=== PATIENT | male | born 1930 | race Caucasian/White ===

== ENCOUNTER 2018-05-09 00:53 | Inpatient (IN) | payer MEDICARE, OTHER ==
[~2018-05-09] VITALS: Ht 175.3 cm; Wt 73.9 kg
[2018-05-09 01:12] LABS: BASOPHILS % (AUTO) 0.6 % (0.0-2.0); EOSINOPHILS # (AUTO) 0.3 K/uL (0.0-0.7); EOSINOPHILS % (AUTO) 4.5 % (0.0-7.0); HEMATOCRIT 33.5 % (36.7-47.1); HEMOGLOBIN 11.1 g/dL (12.5-16.3); LYMPHOCYTES # (AUTO) 1.4 K/uL (20.0-40.0); LYMPHOCYTES % (AUTO) 19.4 % (20.5-51.5); MEAN CORPUSCULAR HEMOGLOBIN 31.6 uug (23.8-33.4); MEAN CORPUSCULAR HGB CONC 33 g/dL (32.5-36.3); MEAN CORPUSCULAR VOLUME 95.2 fL (73.0-96.2); MONOCYTES # (AUTO) 0.6 K/uL (2.0-10.0); NEUTROPHILS # (AUTO) 4.9 K/uL (1.8-8.9); NEUTROPHILS % (AUTO) 67.5 % (38.5-71.5); PLATELET COUNT (AUTO) 194 K/uL (152-348); RED BLOOD CELL COUNT(AUTO) 3.52 MIL/uL (4.06-5.63); WHITE BLOOD COUNT (AUTO) 7.3 K/uL (3.6-10.2)
[2018-05-09 01:17] LABS: CARBON DIOXIDE 23 mmol/L (21-32); CHLORIDE 109 mmol/L (98-107); CREATININE 2.1 mg/dL (0.6-1.3); GLUCOSE 144 mg/dL (74-106); POTASSIUM 4.1 mmol/L (3.5-5.1); UREA NITROGEN, BLOOD 42 mg/dL (7-18)
[2018-05-09 01:23] LABS: ALANINE AMINOTRANSFERASE 16 U/L (16-63); ALKALINE PHOSPHATASE 53 U/L (50-136); ASPARTATE AMINOTRANSFERASE 13 U/L (15-37); BILIRUBIN,DIRECT 0.1 mg/dL (0.0-0.2); BILIRUBIN,TOTAL 0.4 mg/dL (0.2-1.0); TOTAL PROTEIN, SERUM 6.8 g/dL (6.4-8.2)
[2018-05-09] MEDS ORDERED: PANT20TA2 PO (01:24)
[2018-05-09] MEDS ORDERED: SPIR25TA PO (01:24)
[2018-05-09] MEDS ORDERED: POTA20TA10 PO (01:24)
[2018-05-09] MEDS ORDERED: HYDR-4384 PO (01:24)
[2018-05-09] MEDS ORDERED: HYDR-4075 PO (01:24)
[2018-05-09] MEDS ORDERED: VIT1CAPS9 PO (01:24)
[2018-05-09] MEDS ORDERED: ASPI81TA31 PO (01:24)
[2018-05-09] MEDS ORDERED: DONE10TA11 PO (01:24)
[2018-05-09] MEDS ORDERED: MAGN400O6 PO (01:24)
[2018-05-09] MEDS ORDERED: ATOR20TA27 PO (01:24)
[2018-05-09] MEDS ORDERED: CARV6.25 PO (01:24)
[2018-05-09] MEDS ORDERED: CRAN450C PO (01:24)
[2018-05-09] MEDS ORDERED: NA P230E RC (01:24)
[2018-05-09] MEDS ORDERED: MEMA5TAB PO (01:24)
[2018-05-09] MEDS ORDERED: MAG-55 PO (01:24)
[2018-05-09] MEDS ORDERED: ACET325C5 PO (01:26)
[2018-05-09] MEDS ORDERED: ASCO500C18 PO (01:26)
[2018-05-09] MEDS ORDERED: QUET25TA PO (01:26)
[2018-05-09 01:36] LABS: ACETAMINOPHEN < 2.0 ug/mL (10-30)
[2018-05-09 01:40] LABS: ETHANOL < 3 MG/DL (0-0)
[2018-05-09 01:41] LABS: *AMPHETAMINE, URINE NEGATIVE (NEGATIVE); *BARBITURATE, URINE NEGATIVE (NEGATIVE); *BILIRUBIN,URIN NEGATIVE (NEGATIVE); *BLOOD, URINE 2+ (NEGATIVE); *CANNABINOID, URINE NEGATIVE (NEGATIVE); *CLARITY,URINE CLOUDY (CLEAR); *COCCAINE, URINE NEGATIVE (NEGATIVE); *COLOR,URINE LIGHT YELLOW (YELLOW); *KETONES,URINE NEGATIVE (NEGATIVE); *OPIATE, URINE NEGATIVE (NEGATIVE); *PHENCYCLIDINE SCREEN,URINE NEGATIVE (NEGATIVE); *UROBILINOGEN,URINE 0.2 E.U./dl (NORMAL); LEUKOCYTE ESTERASE ,URINE 3+ (NEGATIVE); NITRITE, URINE NEGATIVE (NEGATIVE); PH,URINE 5.5 (5.0-8.0); UGLUCOSE NEGATIVE (NEGATIVE)
[2018-05-09 01:44] LABS: BACTERIA,URINE MANY /HPF (NONE SEEN); SQUAMOUS EPITHELIAL CELL,UR FEW /HPF (NONE SEEN); WBC,URINE TNTC /HPF (0-3)
[2018-05-09] MEDS ORDERED: LEVOFLOXACIN 750 MG TABLET ONE (01:59)
[2018-05-09] MEDS ORDERED: LEVOFLOXACIN 750 MG TABLET PO ONE (02:00)
[2018-05-09] MEDS ORDERED: MAG HYDROX/AL HYDROX/SIMETH 30 ML LIQUID UDC PO PRN ×2 (02:15→07:15)
[2018-05-09] MEDS ORDERED: LORAZEPAM 0.5 MG TABLET PO PRN ×2 (02:15→08:15)
[2018-05-09] MEDS ORDERED: MAGNESIUM HYDROXIDE 30 ML LIQUID UDC PO PRN (02:15)
[2018-05-09] MEDS ORDERED: ACETAMINOPHEN 325 MG TABLET PO PRN (02:15)
[2018-05-09] MEDS ORDERED: TEMAZEPAM 7.5 MG CAPSULE PO PRN (02:15)
[2018-05-09 03:25] VITALS: BP 156/83
[2018-05-09 04:12] VITALS: BP 156/83
[2018-05-09] MEDS ORDERED: [UNRECOGNIZED DRUG - OTHER] PO SCH (06:45)
[2018-05-09] MEDS ORDERED: MAGNESIUM HYDROXIDE 30 ML LIQUID UDC PO SCH (06:45)
[2018-05-09] MEDS ORDERED: MAG HYDROX PO SCH (06:45)
[2018-05-09] MEDS ORDERED: SIMETH PO SCH (06:45)
[2018-05-09] MEDS ORDERED: AL HYDROX PO SCH (06:45)
[2018-05-09] MEDS ORDERED: Medication Not On Formulary EA (Acetaminophen (Tylenol) 650 MG) PO SCH (06:45)
[2018-05-09 07:30] VITALS: BP 124/85
[2018-05-09] MEDS: PANTOPRAZOLE SODIUM 40 MG TABLET.DR PO SCH (07:48)
[2018-05-09] MEDS: ASPIRIN 81 MG TAB.CHEW PO SCH (08:05)
[2018-05-09] MEDS: POTASSIUM CHLORIDE 20 MEQ TAB.PRT.SR PO SCH (08:05)
[2018-05-09] MEDS: ASCORBIC ACID 500 MG TABLET PO SCH (08:05)
[2018-05-09] MEDS: SPIRONOLACTONE 25 MG TABLET PO SCH ×2 (08:06→20:07)
[2018-05-09] MEDS: CARVEDILOL 6.25 MG TABLET PO SCH ×2 (08:59→21:35)
[2018-05-09] MEDS: DONEPEZIL 10 MG TABLET PO SCH (09:00)
[2018-05-09] MEDS ORDERED: MEMANTINE HCL 5 MG TABLET PO SCH (09:00)
[2018-05-09] MEDS ORDERED: Medication Not On Formulary EA (Cranberry Fruit Concentrate (Cranberry) 900 MG) PO SCH (09:00)
[2018-05-09] MEDS ORDERED: Medication Not On Formulary EA (Vit A/Vit C/Vit E/Zinc/Copper (Preservision Areds Softge PO SCH (09:00)
[2018-05-09] MEDS: DIVALPROEX SPRINKLE 125 MG CAP.SPRINK PO SCH ×2 (09:00→20:07)
[2018-05-09] MEDS ORDERED: Medication Not On Formulary EA (Ascorbic Acid (Vitamin C) 500 MG) PO SCH (09:00)
[2018-05-09] MEDS: MEMANTINE HCL 5 MG TABLET PO SCH ×2 (09:01→20:07)
[2018-05-09] MEDS: BETA CAROTENE/VIT C & E/MIN TABLET PO SCH (09:02)
[2018-05-09] MEDS: hydrALAZINE HCL 10 MG TABLET PO SCH ×2 (14:21→23:05)
[2018-05-09 16:29] VITALS: BP 129/85
[2018-05-09] MEDS: ATORVASTATIN 20 MG TABLET PO SCH (20:06)
[2018-05-09] MEDS: CEphaleXIN 500 MG CAPSULE PO SCH (20:07)
[2018-05-09] MEDS: QUETIAPINE FUMARATE 25 MG TABLET PO SCH (20:07)
[2018-05-09 20:56] VITALS: BP 122/71
[2018-05-09] MEDS ORDERED: DONEPEZIL 10 MG TABLET PO SCH (21:00)
[2018-05-10] MEDS: hydrALAZINE HCL 10 MG TABLET PO SCH ×3 (06:00→22:04)
[2018-05-10] MEDS: PANTOPRAZOLE SODIUM 40 MG TABLET.DR PO SCH (06:46)
[2018-05-10] MEDS: DIVALPROEX SPRINKLE 125 MG CAP.SPRINK PO SCH ×2 (08:31→20:15)
[2018-05-10] MEDS: DONEPEZIL 10 MG TABLET PO SCH (08:31)
[2018-05-10] MEDS: MEMANTINE HCL 5 MG TABLET PO SCH ×2 (08:32→20:15)
[2018-05-10] MEDS: ASCORBIC ACID 500 MG TABLET PO SCH (08:32)
[2018-05-10] MEDS: BETA CAROTENE/VIT C & E/MIN TABLET PO SCH (08:32)
[2018-05-10] MEDS: ASPIRIN 81 MG TAB.CHEW PO SCH (08:32)
[2018-05-10] MEDS: CEphaleXIN 500 MG CAPSULE PO SCH ×2 (08:32→20:15)
[2018-05-10] MEDS: SPIRONOLACTONE 25 MG TABLET PO SCH ×2 (08:32→20:15)
[2018-05-10] MEDS: CARVEDILOL 6.25 MG TABLET PO SCH ×2 (08:40→21:00)
[2018-05-10 08:41] LABS: BASOPHILS % (AUTO) 0.5 % (0.0-2.0); EOSINOPHILS # (AUTO) 0.2 K/uL (0.0-0.7); EOSINOPHILS % (AUTO) 3.6 % (0.0-7.0); HEMATOCRIT 33.1 % (36.7-47.1); LYMPHOCYTES # (AUTO) 1.4 K/uL (20.0-40.0); MEAN CORPUSCULAR HEMOGLOBIN 31.7 uug (23.8-33.4); MEAN CORPUSCULAR HGB CONC 33 g/dL (32.5-36.3); MEAN CORPUSCULAR VOLUME 95.7 fL (73.0-96.2); MONOCYTES # (AUTO) 0.6 K/uL (2.0-10.0); MONOCYTES % (AUTO) 8.9 % (0.0-11.0); NEUTROPHILS # (AUTO) 4.5 K/uL (1.8-8.9); PLATELET COUNT (AUTO) 186 K/uL (152-348); RED BLOOD CELL COUNT(AUTO) 3.46 MIL/uL (4.06-5.63); WHITE BLOOD COUNT (AUTO) 6.8 K/uL (3.6-10.2)
[2018-05-10] MEDS: POTASSIUM CHLORIDE 20 MEQ TAB.PRT.SR PO SCH (08:46)
[2018-05-10 08:48] LABS: ALANINE AMINOTRANSFERASE 12 U/L (16-63); ALKALINE PHOSPHATASE 48 U/L (50-136); ASPARTATE AMINOTRANSFERASE 13 U/L (15-37); BILIRUBIN,TOTAL 0.4 mg/dL (0.2-1.0); CARBON DIOXIDE 21 mmol/L (21-32); CHLORIDE 109 mmol/L (98-107); CREATINE KINASE, TOTAL 49 U/L (39-308); CREATININE 2.2 mg/dL (0.6-1.3); GLUCOSE 88 mg/dL (74-106); MAGNESIUM 1.8 mg/dL (1.8-2.4); PHOSPHOROUS 3.4 mg/dL (2.5-4.9); POTASSIUM 4.5 mmol/L (3.5-5.1); TOTAL PROTEIN, SERUM 6.6 g/dL (6.4-8.2); UREA NITROGEN, BLOOD 40 mg/dL (7-18)
[2018-05-10 10:00] VITALS: BP 134/79
[2018-05-10 16:00] VITALS: BP 108/70
[2018-05-10] MEDS: ATORVASTATIN 20 MG TABLET PO SCH (20:15)
[2018-05-10] MEDS: QUETIAPINE FUMARATE 25 MG TABLET PO SCH (20:15)
[2018-05-10 20:43] VITALS: BP 119/61
[2018-05-11 01:40] LABS: *BILIRUBIN,URIN NEGATIVE (NEGATIVE); *BLOOD, URINE 1+ (NEGATIVE); *CLARITY,URINE TURBID (CLEAR); *COLOR,URINE YELLOW (YELLOW); *KETONES,URINE NEGATIVE (NEGATIVE); *UROBILINOGEN,URINE 0.2 E.U./dl (NORMAL); LEUKOCYTE ESTERASE ,URINE 3+ (NEGATIVE); NITRITE, URINE NEGATIVE (NEGATIVE); PH,URINE 5.5 (5.0-8.0); UGLUCOSE NEGATIVE (NEGATIVE)
[2018-05-11 02:02] LABS: BACTERIA,URINE FEW /HPF (NONE SEEN); SQUAMOUS EPITHELIAL CELL,UR FEW /HPF (NONE SEEN); WBC,URINE TNTC /HPF (0-3)
[2018-05-11 02:08] LABS: *CREATININE,URINE 62.2 mg/dL (30-125); *URINE TOTAL PROTEIN RANDOM 27.1 mg/dL (<150/24HR)
[2018-05-11] MEDS: hydrALAZINE HCL 10 MG TABLET PO SCH ×3 (06:00→22:27)
[2018-05-11 07:30] VITALS: BP 118/81
[2018-05-11 07:38] LABS: CARBON DIOXIDE 21 mmol/L (21-32); CHLORIDE 108 mmol/L (98-107); GLUCOSE 94 mg/dL (74-106); POTASSIUM 4.7 mmol/L (3.5-5.1); UREA NITROGEN, BLOOD 43 mg/dL (7-18)
[2018-05-11] MEDS: MEMANTINE HCL 5 MG TABLET PO SCH ×2 (08:07→20:05)
[2018-05-11] MEDS: FAMOTIDINE 20 MG TABLET PO SCH (08:07)
[2018-05-11] MEDS: ASPIRIN 81 MG TAB.CHEW PO SCH (08:07)
[2018-05-11] MEDS: BETA CAROTENE/VIT C & E/MIN TABLET PO SCH (08:07)
[2018-05-11] MEDS: DIVALPROEX SPRINKLE 125 MG CAP.SPRINK PO SCH ×2 (08:07→20:05)
[2018-05-11] MEDS: ASCORBIC ACID 500 MG TABLET PO SCH (08:08)
[2018-05-11] MEDS: CEphaleXIN 500 MG CAPSULE PO SCH ×2 (08:08→20:05)
[2018-05-11] MEDS: CARVEDILOL 6.25 MG TABLET PO SCH ×2 (08:08→20:07)
[2018-05-11] MEDS: DONEPEZIL 10 MG TABLET PO SCH (08:08)
[2018-05-11] MEDS: SPIRONOLACTONE 25 MG TABLET PO SCH ×2 (08:14→20:07)
[2018-05-11] MEDS: POTASSIUM CHLORIDE 20 MEQ TAB.PRT.SR PO SCH (09:04)
[2018-05-11 16:00] VITALS: BP 114/68
[2018-05-11 20:00] VITALS: BP 128/63
[2018-05-11] MEDS: QUETIAPINE FUMARATE 25 MG TABLET PO SCH (20:05)
[2018-05-11] MEDS: ATORVASTATIN 20 MG TABLET PO SCH (20:05)
[2018-05-12] MEDS: hydrALAZINE HCL 10 MG TABLET PO SCH ×3 (05:53→22:08)
[2018-05-12 07:30] VITALS: BP 144/89
[2018-05-12] MEDS: MEMANTINE HCL 5 MG TABLET PO SCH ×2 (08:45→20:18)
[2018-05-12] MEDS: CEphaleXIN 500 MG CAPSULE PO SCH ×2 (08:45→20:19)
[2018-05-12] MEDS: FAMOTIDINE 20 MG TABLET PO SCH (08:45)
[2018-05-12] MEDS: BETA CAROTENE/VIT C & E/MIN TABLET PO SCH (08:45)
[2018-05-12] MEDS: ASPIRIN 81 MG TAB.CHEW PO SCH (08:45)
[2018-05-12] MEDS: ASCORBIC ACID 500 MG TABLET PO SCH (08:45)
[2018-05-12] MEDS: POTASSIUM CHLORIDE 20 MEQ TAB.PRT.SR PO SCH (08:45)
[2018-05-12] MEDS: DONEPEZIL 10 MG TABLET PO SCH (08:45)
[2018-05-12] MEDS: DIVALPROEX SPRINKLE 125 MG CAP.SPRINK PO SCH ×2 (08:45→20:17)
[2018-05-12] MEDS: SPIRONOLACTONE 25 MG TABLET PO SCH ×2 (08:45→20:17)
[2018-05-12] MEDS: CARVEDILOL 6.25 MG TABLET PO SCH ×2 (08:46→20:27)
[2018-05-12 15:27] VITALS: BP 139/79
[2018-05-12 20:05] VITALS: BP 160/76
[2018-05-12] MEDS: ATORVASTATIN 20 MG TABLET PO SCH (20:18)
[2018-05-12] MEDS: QUETIAPINE FUMARATE 25 MG TABLET PO SCH (20:18)
[2018-05-13 00:11] LABS: A/G RATIO 1.3 (0.7-1.7); ALBUMIN 3.4 g/dL (2.9-4.4); ALPHA-1-GLOBULIN 0.1 g/dL (0.0-0.4); ALPHA-2-GLOBULIN 0.7 g/dL (0.4-1.0); BETA GLOBULIN 0.8 g/dL (0.7-1.3); GLOBULIN, TOTAL 2.7 g/dL (2.2-3.9); M-SPIKE Not Observed g/dL (Not Observed)
[2018-05-13] MEDS: hydrALAZINE HCL 10 MG TABLET PO SCH ×3 (05:35→21:44)
[2018-05-13 07:30] VITALS: BP 157/58
[2018-05-13 07:36] LABS: BASOPHILS % (AUTO) 0.3 % (0.0-2.0); EOSINOPHILS # (AUTO) 0.2 K/uL (0.0-0.7); EOSINOPHILS % (AUTO) 2.7 % (0.0-7.0); HEMATOCRIT 34.3 % (36.7-47.1); HEMOGLOBIN 11.6 g/dL (12.5-16.3); LYMPHOCYTES # (AUTO) 1.2 K/uL (20.0-40.0); LYMPHOCYTES % (AUTO) 12.9 % (20.5-51.5); MEAN CORPUSCULAR HEMOGLOBIN 32.2 uug (23.8-33.4); MEAN CORPUSCULAR HGB CONC 34 g/dL (32.5-36.3); MEAN CORPUSCULAR VOLUME 95.6 fL (73.0-96.2); MONOCYTES # (AUTO) 0.8 K/uL (2.0-10.0); MONOCYTES % (AUTO) 8.4 % (0.0-11.0); NEUTROPHILS % (AUTO) 75.7 % (38.5-71.5); PLATELET COUNT (AUTO) 181 K/uL (152-348); RED BLOOD CELL COUNT(AUTO) 3.59 MIL/uL (4.06-5.63); WHITE BLOOD COUNT (AUTO) 9.2 K/uL (3.6-10.2)
[2018-05-13 07:48] LABS: CARBON DIOXIDE 22 mmol/L (21-32); CHLORIDE 108 mmol/L (98-107); CREATININE 1.9 mg/dL (0.6-1.3); GLUCOSE 86 mg/dL (74-106); PHOSPHOROUS 4.1 mg/dL (2.5-4.9); POTASSIUM 4.5 mmol/L (3.5-5.1); UREA NITROGEN, BLOOD 46 mg/dL (7-18)
[2018-05-13] MEDS: ASCORBIC ACID 500 MG TABLET PO SCH (08:04)
[2018-05-13] MEDS: BETA CAROTENE/VIT C & E/MIN TABLET PO SCH (08:04)
[2018-05-13] MEDS: DIVALPROEX SPRINKLE 125 MG CAP.SPRINK PO SCH ×2 (08:04→20:44)
[2018-05-13] MEDS: POTASSIUM CHLORIDE 20 MEQ TAB.PRT.SR PO SCH (08:04)
[2018-05-13] MEDS: CEphaleXIN 500 MG CAPSULE PO SCH ×2 (08:04→20:44)
[2018-05-13] MEDS: ASPIRIN 81 MG TAB.CHEW PO SCH (08:05)
[2018-05-13] MEDS: CARVEDILOL 6.25 MG TABLET PO SCH ×2 (08:05→20:46)
[2018-05-13] MEDS: FAMOTIDINE 20 MG TABLET PO SCH (08:05)
[2018-05-13] MEDS: DONEPEZIL 10 MG TABLET PO SCH (08:05)
[2018-05-13] MEDS: SPIRONOLACTONE 25 MG TABLET PO SCH ×2 (08:05→20:43)
[2018-05-13] MEDS: MEMANTINE HCL 5 MG TABLET PO SCH ×2 (08:14→20:44)
[2018-05-13 15:13] VITALS: BP 111/90
[2018-05-13 20:00] VITALS: BP 120/73
[2018-05-13] MEDS: ATORVASTATIN 20 MG TABLET PO SCH (20:44)
[2018-05-13] MEDS: QUETIAPINE FUMARATE 25 MG TABLET PO SCH (20:44)
[2018-05-14] MEDS: hydrALAZINE HCL 10 MG TABLET PO SCH ×2 (06:00→14:18)
[2018-05-14 07:30] VITALS: BP 134/73
[2018-05-14] MEDS: ASPIRIN 81 MG TAB.CHEW PO SCH (08:49)
[2018-05-14] MEDS: DIVALPROEX SPRINKLE 125 MG CAP.SPRINK PO SCH (08:49)
[2018-05-14] MEDS: FAMOTIDINE 20 MG TABLET PO SCH (08:49)
[2018-05-14] MEDS: DONEPEZIL 10 MG TABLET PO SCH (08:49)
[2018-05-14] MEDS: CEphaleXIN 500 MG CAPSULE PO SCH (08:49)
[2018-05-14] MEDS: ASCORBIC ACID 500 MG TABLET PO SCH (08:49)
[2018-05-14] MEDS: MEMANTINE HCL 5 MG TABLET PO SCH (08:49)
[2018-05-14] MEDS: CARVEDILOL 6.25 MG TABLET PO SCH (08:50)
[2018-05-14] MEDS: BETA CAROTENE/VIT C & E/MIN TABLET PO SCH (08:50)
[2018-05-14] MEDS: POTASSIUM CHLORIDE 20 MEQ TAB.PRT.SR PO SCH (08:58)
[2018-05-14] MEDS: SPIRONOLACTONE 25 MG TABLET PO SCH (08:58)
[2018-05-14 14:18] VITALS: BP 128/80
== END 2018-05-14 14:30 | DRG 885 ==
LOC: ER 00:56 → GPS 02:13
PROVIDERS: ADMIT Psychiatry & Neurology Psychiatry; ATTEND Hospitalist
DX: F29 Unspecified psychosis not due to a substance or known physiological condition (principal); N18.9 Chronic kidney disease, unspecified; N17.9 Acute kidney failure, unspecified; F03.91 Unspecified dementia, unspecified severity, with behavioral disturbance; I13.0 Hypertensive heart and chronic kidney disease with heart failure and stage 1 through stage 4 chronic kidney disease, or unspecified chronic kidney disease; N39.0 Urinary tract infection, site not specified; E44.1 Mild protein-calorie malnutrition; K21.9 Gastro-esophageal reflux disease without esophagitis; D63.1 Anemia in chronic kidney disease; J44.9 Chronic obstructive pulmonary disease, unspecified; E78.5 Hyperlipidemia, unspecified; Z68.24 Body mass index [BMI] 24.0-24.9, adult; I50.9 Heart failure, unspecified; Z79.899 Other long term (current) drug therapy; Z87.440 Personal history of urinary (tract) infections; Z87.891 Personal history of nicotine dependence; I70.0 Atherosclerosis of aorta; I27.20 Pulmonary hypertension, unspecified; Z66 Do not resuscitate
CPT/HCPCS: 36415; 71045; 80164; 80307; 83735; 83970; 84100; 84155; 84156; 84165; 84300; 85025; 87086; 93005; A4663; G0480; G0480-TC